=== PATIENT | female | born 1970 | race Caucasian/White ===

== ENCOUNTER 2024-12-31 08:55 | Outpatient (CLI) | payer OTHER ==
[~2024-12-31] VITALS: Ht 165.1 cm; Wt 93.0 kg
[2024-12-31] MEDS: albuterol 2.5 MG/3 ML nebule NEB ONE (10:41)
[2024-12-31 10:42] VITALS: PULSE 84; RESP 16; O2SAT 98
[2024-12-31 10:53] VITALS: PULSE 89; RESP 16
== END 2024-12-31 23:59 | disposition home or self-care (01) ==
LOC: CARD DIAG 08:55
PROVIDERS: ATTEND Chiropractor
DX: I08.8 Other rheumatic multiple valve diseases (principal); J45.909 Unspecified asthma, uncomplicated; I25.9 Chronic ischemic heart disease, unspecified
CPT/HCPCS: 93306; 94060; 94760